=== PATIENT | male | born 1975 | race Caucasian/White ===

== ENCOUNTER → 2018-09-13 | Outpatient (CLI) | payer OTHER, SELFPAY ==
--- NOTE | 2018-09-13 16:49 | RAD_ITS ---
STUDY: X-RAY - LUMBAR SPINE REASON FOR EXAM: Male, 42 years old. Low back pain TECHNIQUE: 5 view(s) of the lumbar spine were obtained. COMPARISON: None FINDINGS: Normal lumbar lordosis. There is a mild dextroscoliosis. There is a normal alignment of the vertebrae in the lateral view. Normal vertebral bodies and endplates. Normal disc space heights. The soft tissue structures are unremarkable. RAD/L/S Spine Min 4 Views IMPRESSION: Normal x-ray examination of the lumbar spine. Electronically Signed: Carlitos Rehman MD at 17:58 EDT , Service support ,
== END | disposition home or self-care (01) ==
LOC: MTRAD 16:47
PROVIDERS: Family Provider Family Medicine; PCP Family Medicine; Referring Provider Family Medicine; Visit Provider Family Medicine
DX: M51.37 Other intervertebral disc degeneration, lumbosacral region (principal)
CPT/HCPCS: 72110

== ENCOUNTER 2018-09-15 12:25 | Emergency (ER) | payer OTHER, SELFPAY ==
[2018-09-15 12:25] VITALS: BP 138/83; PULSE 70; RESP 18; TEMP 36.7; O2SAT 95; BMI 29.1
--- NOTE | 2018-09-15 13:31 | ED.VIS.GEN ---
History of Present Illness Chief Complaint: Abscess Informant: Patient Onset: Today Timing: Continuous Current Severity: Moderate Maximum Severity: Moderate Narrative: Patient presents with a right posterior thigh abscess for 2 days. No fever chills cough or congestion. 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 He denies any systemic symptoms. Pain is mild to moderate achy Prior similar symptoms: No Past Medical History - Allergies and Home Meds Allergies/Adverse Reactions: Allergies No Known Allergies Allergy (Verified 09/15/18 12:28) Primary Care Physician: Stephen Jarvis MD [Primary Care Provider] - Past Medical History: None Smoking Status: Never smoker Review of Systems General: Denies: Fever Musculoskeletal: Reports: - - As in HPI Skin: Reports: Abscess Neurological: Denies: Weakness, Parasthesia Hematologic: Denies: Easy bruising, Easy bleeding Physical Exam Vital Signs/Narrative: Vital Signs Temp Pulse Resp BP Pulse Ox 09/15/18 12:25 98.1 F 70 18 138/83 H 95 Inital Vital Signs reviewed: Yes 1 - 2 cm abscess with 6 cm surrounding cellulitis General: Well nourished, Well developed Head: Normocephalic Cardiovascular: Regular rate Abdomen: Soft, Nontender Rectal: Deferred Back: Negative for: Spinal tenderness Extremities: - - As in the drawing Skin: - - Cellulitis and abscess as above Neurological: Normal Strength, Normal Sensation, Normal Gait Diagnostic/Tx/Re-eval - Medical Decision Making I&D was performed, patient will be discharged with analgesics and antibiotics. Procedures Procedure(s): Incision and drainage. Verbal permission. 2 cm right thigh abscess, Sarah, 1% lidocaine, 5 mL's. #11 blade was used I ellipsed the wound I probed. Moderate amount of pus was expectorated. Wound was left open. Patient tolerated procedure well ED Disposition - Plan for ED Patient: Disposition: Home or Assisted Living Diagnosis: Abscess Instructions: ABSCESS, Incision and Drainage Prescriptions: Sulfamethoxazole/Trimethoprim [Bactrim Ds Tablet] 1 ea PO BID #20 tab Prescription Printed Cephalexin [Keflex] 500 mg PO 4X/DAY #40 cap Prescription Printed Naproxen [Naprosyn] 500 mg PO BID PRN #20 tab Prescription Printed Referrals: Stephen Jarvis MD [Primary Care Provider] - 3-5 Days
[2018-09-15] MEDS: Cephalexin 250 MG Capsule 500 MG PO (13:47)
[2018-09-15] MEDS: Naproxen 500 MG Tablet PO (13:47)
[2018-09-15] MEDS: Smz/Tmp Ds Tablet 1 TABLET PO (13:47)
[2018-09-15 14:01] VITALS: RESP 19
== END 2018-09-15 14:02 | disposition home or self-care (01) ==
PROVIDERS: Emergency Provider Emergency Medicine; Family Provider Family Medicine; PCP Family Medicine
DX: L02.415 Cutaneous abscess of right lower limb (principal); L03.115 Cellulitis of right lower limb
CPT/HCPCS: 10060; 99283

== ENCOUNTER 2018-10-28 01:38 | Emergency (ER) | payer OTHER, SELFPAY ==
[2018-10-28 01:39] VITALS: BP 157/80; PULSE 70; RESP 16; TEMP 36.7; O2SAT 98; BMI 66.1
--- NOTE | 2018-10-28 02:05 | ED.DCSUM_ITS ---
- ER Visit Summary Date of Service: 10/28/18 Chief Complaint: Abscess History of Present Illness: The patient is a 42 M who presents with an abscess to his right posterior thigh and gluteal area. Patient states this has been getting worse over the past 5 days. Patient states it is gradually gotten worse. Patient states the pain is worse with applying any pressure or sitting. Patient states he tried to squeeze this at home and noted some mild bleeding. Patient denies any fevers or chills. Patient denies any nausea or vomiting. Patient states he had a similar episode a few months ago and had an incision and drainage at that time. Patient states he was placed on antibiotics. Physical Examination: Vital signs are stable. Patient is afebrile. Patient is in no acute distress. Oral mucosa is pink and moist. Neck is supple. Trachea is midline. Skin is warm and dry. There is erythema and induration over the right proximal thigh and gluteal area. There is no fluctuance. There is no discharge or drainage. Emergency Department Course and Treatment: The area was cleaned and anesthetized 1% plain lidocaine locally. A cruciate incision was made with a #11 blade scalpel. There is minimal purulent drainage expressed. Loculations were broken up with hemostats. The wound was left open. Patient was given a dose of clindamycin here. Patient was given a prescription for clindamycin. Patient was instructed to follow-up with his primary care physician in 5 to 7 days for wound recheck. Patient understood and was agreeable with the plan. All questions were answered. Disposition: Discharge home Impression: Abscess right thigh This note was generated with [email or web address] dictation software. It may contain incorrect words, spelling, and punctuation that were not noted in review of the chart prior to signing ED Disposition - Plan for ED Patient: Disposition: Home or Assisted Living Diagnosis: Abscess of right thigh Instructions: ABSCESS, Incision and Drainage Prescriptions: Clindamycin HCl [Cleocin] 300 mg PO Q6H #40 cap Prescription Printed Referrals: Stephen Jarvis MD [Primary Care Provider] - 5-7 Days
[2018-10-28] MEDS: Clindamycin HCl 150 MG Capsule 300 MG PO (02:16)
[2018-10-28 02:43] VITALS: RESP 16
== END 2018-10-28 02:44 | disposition home or self-care (01) ==
LOC: ED 02:11
PROVIDERS: Emergency Provider Emergency Medicine; Family Provider Family Medicine; PCP Family Medicine
DX: L02.415 Cutaneous abscess of right lower limb (principal)
CPT/HCPCS: 10060; 99283

== ENCOUNTER → 2021-02-18 | Outpatient (CLI) | payer OTHER, SELFPAY | END | disposition home or self-care (01) | PROVIDERS: PCP Family Medicine; Visit Provider Physician Assistant | DX: Z11.52 Encounter for screening for COVID-19 (principal) | CPT/HCPCS: 87635; U0005; U0003 ==

== ENCOUNTER → 2022-03-08 | Outpatient (CLI) | payer OTHER, SELFPAY ==
[2022-03-08 12:47] LABS: ALB/GLOB Ratio 1.1 RATIO (0.9-2.4); AST(SGOT) 29 U/L (15-37); Alanine Aminotransfer ALT/SGPT 76 U/L (16-61); Albumin, Serum 3.8 g/dL (3.2-5.0); Alkaline Phosphatase 67 U/L (45-117); Anion Gap 8 (5-15); BUN 17 mg/dL (7-18); BUN/Creat Ratio 18.8 RATIO (10-20); Calcium,Total 8.9 mg/dL (8.5-10.1); Chloride 107 mmol/L (98-107); Cholesterol 287 mg/dL (200); EST Glomerular Filtration Rate 96 mL/min (>60); Est Glom Filt Rate - Afr Amer 116 mL/min (>60); Globulin 3.5 g/dL (2.2-4.2); Glucose 102 mg/dL (74-106); High Density Lipoprotein 51 mg/dL; Potassium 4.2 mmol/L (3.5-5.1); Protein, Total 7.3 g/dL (6.4-8.2); Sodium Level 139 mmol/L (136-145); Triglycerides 208 mg/dL; Very Low Density Lipoprotein 42 mg/dL (5-40)
== END | disposition home or self-care (01) ==
LOC: MTLAB 09:40
PROVIDERS: PCP Family Medicine; Referring Provider Nurse Practitioner Family; Visit Provider Nurse Practitioner Family
DX: Z13.220 Encounter for screening for lipoid disorders (principal); Z13.1 Encounter for screening for diabetes mellitus
CPT/HCPCS: 36415; 80053; 80061

== ENCOUNTER → 2022-07-30 | Outpatient (CLI) | payer OTHER, SELFPAY ==
--- NOTE | 2022-07-30 10:34 | US_ITS ---
EXAM: US ABDOMEN COMPLETE CLINICAL INDICATION: pain TECHNIQUE: Real-time ultrasound of the abdomen with image documentation. COMPARISON: No relevant prior studies available. FINDINGS: LIVER: Increased echogenicity of the liver is nonspecific but most commonly associated with hepatic steatosis. No hepatic masses. The liver measures 17.1 cm. GALLBLADDER: Unremarkable. No shadowing gallstone. No gallbladder wall thickening is demonstrated. No pericholecystic fluid. Negative sonographic Licea''s sign. COMMON BILE DUCT: Unremarkable as visualized. The proximal common bile duct is within normal limits for the patient''s age. PANCREAS: Unremarkable as visualized. No focal abnormality is demonstrated in the pancreas. No pancreatic ductal dilatation. KIDNEYS: Unremarkable. There is no hydronephrosis. No shadowing calculus. No focal lesion or perinephric collection is demonstrated. SPLEEN: Unremarkable. The spleen is normal in size and homogeneous in echotexture. AORTA: Unremarkable. Submitted longitudinal images of the intra-abdominal aorta demonstrate no gross abnormalities and are unremarkable. INFERIOR VENA CAVA: Unremarkable. The IVC is patent. FREE FLUID: There is no free fluid. US/Abdomen Complete IMPRESSION: Increased echogenicity of the liver is nonspecific but most commonly associated with hepatic steatosis. Borderline hepatomegaly. Electronically Signed: Kike Huang (Brooks), at 21:59 EDT ,
[2022-07-30 11:59] LABS: Hematocrit 44.9 % (40-54); Hemoglobin 14.6 g/dL (13.0-16.5); Mean Corp Hgb Conc 32.5 g/dL (32-36); Mean Corpuscular Hgb 28.5 pg (27.0-32.0); Mean Corpuscular Volume 87.5 fL (80-94); Mean Platelet Vol. 8.7 fl (6.2-12.0); Platelet Count 298 K/mm3 (150-450); RBC Distribution Width CV 13.2 % (11.6-14.6); RBC Distribution Width SD 42.8 fl (35.1-43.9); Red Blood Count 5.13 M/mm3 (4.6-6.2); White Blood Count 6.1 K/mm3 (4.4-11.0)
[2022-07-30 12:12] LABS: Hemoglobin A1c 5.5 % (3.8-5.6)
[2022-07-30 12:27] LABS: ALB/GLOB Ratio 0.9 RATIO (0.9-2.4); AST(SGOT) 19 U/L (15-37); Alanine Aminotransfer ALT/SGPT 38 U/L (16-61); Albumin, Serum 3.6 g/dL (3.2-5.0); Alkaline Phosphatase 68 U/L (45-117); Anion Gap 5 (5-15); BUN 14 mg/dL (7-18); Chloride 107 mmol/L (98-107); Cholesterol 216 mg/dL (200); Creatinine, Serum 0.87 mg/dL (0.70-1.30); EST Glomerular Filtration Rate 99 mL/min (>60); Est Glom Filt Rate - Afr Amer 120 mL/min (>60); Globulin 3.8 g/dL (2.2-4.2); Glucose 86 mg/dL (74-106); High Density Lipoprotein 50 mg/dL; Lipase 39 U/L (13-75); Potassium 4.2 mmol/L (3.5-5.1); Protein, Total 7.4 g/dL (6.4-8.2); Sodium Level 141 mmol/L (136-145); Triglycerides 93 mg/dL; Very Low Density Lipoprotein 19 mg/dL (5-40)
== END | disposition home or self-care (01) ==
LOC: US 10:28
PROVIDERS: PCP Family Medicine; Referring Provider Family Medicine; Visit Provider Family Medicine
DX: R10.84 Generalized abdominal pain (principal); R53.81 Other malaise; E78.1 Pure hyperglyceridemia; R73.01 Impaired fasting glucose
CPT/HCPCS: 36415; 76700; 80053; 80061; 83036; 83690; 84443; 85027

== ENCOUNTER 2022-09-16 21:38 | Inpatient (IN) | payer OTHER, SELFPAY ==
[2022-09-16 21:39] VITALS: BP 140/90; PULSE 90; RESP 18; TEMP 36.7; O2SAT 98; BMI 31.4
[2022-09-16 22:08] LABS: Absolute Lymphocyte Count 2.62 X10^3/uL (0.83-4.51); Absolute Neutrophil Count 5.4 X10^3/uL (2.0-7.7); Basophil# 0.04 X10^3/uL; Basophil% 0.4 % (0-1); Eosinophil# 0.14 X10^3/uL; Eosinophils% 1.5 % (0-5); Hematocrit 44.4 % (40-54); Lymphocyte # 2.62 X10^3/ul (0.83-4.51); Lymphocyte % 28.6 % (19-41); Mean Corp Hgb Conc 33.8 g/dL (32-36); Mean Corpuscular Volume 85.9 fL (80-94); Mean Platelet Vol. 8.7 fl (6.2-12.0); Monocyte# 0.96 X10^3/uL; Monocyte% 10.5 % (0-10); NRBC Flagged by Analyzer 0 % (0-5); Neutrophil # 5.37 X10^3/uL (2.7-7.7); Neutrophil % 58.7 % (47-70); Platelet Count 289 K/mm3 (150-450); RBC Distribution Width CV 13.2 % (11.6-14.6); RBC Distribution Width SD 41.1 fl (35.1-43.9); Red Blood Count 5.17 M/mm3 (4.6-6.2); White Blood Count 9.2 K/mm3 (4.4-11.0)
[2022-09-16 22:20] LABS: Anion Gap 10 (5-15); BUN 17 mg/dL (7-18); BUN/Creat Ratio 18.3 RATIO (10-20); Chloride 105 mmol/L (98-107); Creatinine, Serum 0.93 mg/dL (0.70-1.30); EST Glomerular Filtration Rate 92 mL/min (>60); Est Glom Filt Rate - Afr Amer 112 mL/min (>60); Estimated Creatinine Clearance 104.58 ml/min; Glucose 108 mg/dL (74-106); Potassium 3.8 mmol/L (3.5-5.1); Sodium Level 139 mmol/L (136-145)
[2022-09-16 22:31] VITALS: BP 140/90; PULSE 90; RESP 18; TEMP 36.6; O2SAT 98
--- NOTE | 2022-09-16 22:38 | ED.RN ---
hiked sat & sun, felt sick monday, saw bite lomas . went to ed ([facility]) . I&D'd, cultured, started on doxy dr reyna consulted for appt mon now has streaks from wound to thigh.
--- NOTE | 2022-09-16 23:55 | HP.PCM.HOS_ITS ---
HPI - General General Date of Admission: 09/16/22 Date of Service: 09/16/22 Chief Complaint: Leg wound, redness, worsening. HPI Narrative The patient is a 46 y/o M w/ PMHx: HLD, CHARLES on CPAP, Obesity who presents to the [facility] ED on 09/16/22 with history of hiking over the weekend at [employer] [place] specifically on Monday and Monday both with onset on Monday general fatigue and malaise as well as a headache which was throbbing which he usually does not have any mild abdominal cramping and discomfort with then onset Monday noted 2 small lumps to the medial upper inner calf region which they initially thought were may be infected follicles but there is no erythema at that time with then transition of the 2 small follicles to 1 coalesced region which became black on Monday and further worsened on increasing in size but then onset of leg pain prompting ED evaluation at outside facility with I&D and some debridement of the necrotic tissue which was reportedly sent for culture but no discharge or purulent material was removed from the wound at that time per patient report with discharge on doxycycline however on day of presentation he had noted significant periwound erythema and streaking up his thigh prompting family to encourage him to present to the ED for evaluation. With the onset of the situation the outside facility had assisted in setting up a follow-up with general surgery Dr. Carroll for this upcoming Monday for this wound evaluation of note. Work-up in the ED included T98, heart rate 90, BP initially 140/90, respiratory rate 18, 98% on room air, CBC with WBC 9.2, hemoglobin 15, platelet 289 without marked shift, BMP unremarkable aside glucose 108, lactic acid 1.0. In the ED patient ministered IV vancomycin and IV Zosyn. [facility] Medical History (Updated 09/17/22 @ 01:[address] Karin Cassidy MD) Hyperlipidemia Obesity CHARLES on CPAP Home Medications NK 03/16/20 [History Last Taken Unknown] Allergy/AdvReac Type Severity Reaction Status Date / Time No Known Allergies Allergy Verified 09/16/22 21:42 Family History (Updated 09/17/22 @ 01:[address] Karin Cassidy MD) Mother Heart disease Hypertension Father No problems noted. other (Denies any marked paternal family history including heart disease, diabetes, cancer.) Surgical History (Updated 09/17/22 @ 01:[address] Karin Cassidy MD) History of hand surgery History of neck surgery History of tonsillectomy Social History (Updated 09/17/22 @ 01:[address] Karin Cassidy MD) household members: spouse and family Smoking Status: Never smoker alcohol intake: current alcohol intake frequency: a few times a month substance use type: does not use ROS ROS Narrative Admission Review of Systems: CONSTITUTIONAL: No weight loss, fever, chills, + weakness or fatigue. HEENT: + Transient headache. Eyes: No visual loss, blurred vision, double vision or yellow sclerae. Ears, Nose, Throat: No hearing loss, sneezing, congestion, runny nose or sore throat. SKIN: + Significant right lower extremity medial inner calf initial boils which coalesced and eventually necrosis with now surrounding erythema. CARDIOVASCULAR: No chest pain, chest pressure or chest discomfort, palpitations, edema, orthopnea, syncopal events. RESPIRATORY: No shortness of breath, cough or sputum, wheezing, hemoptysis. GASTROINTESTINAL: + anorexia, nausea, transient abdominal discomfort, no vomiting or diarrhea, melena, BRBPR. GENITOURINARY: No dysuria, frequency, urgency or retention. NEUROLOGICAL: + Transient headache. Dizziness, syncope, paralysis, ataxia, numbness or tingling in the extremities, focal weakness, change in bowel or bladder control, seizure. MUSCULOSKELETAL: +muscle, back pain, joint pain or stiffness. HEMATOLOGIC: No anemia, bleeding or bruising. LYMPHATICS: No enlarged nodes. No history of splenectomy. PSYCHIATRIC: No history of depression or anxiety. ENDOCRINOLOGIC: No reports of sweating, cold or heat intolerance. No polyuria or polydipsia. ALLERGIES: No history of asthma, hives, eczema or rhinitis. Vital Signs Vital Signs Vital Signs: 09/16/22 21:39 09/16/22 22:31 Temperature 98.0 F 98 F Temperature Source Temporal Oral Pulse Rate 90 90 Respiratory Rate 18 18 Blood Pressure 140/90 H 140/90 H Blood Pressure Mean 106 106 Pulse Ox 98 98 Oxygen Delivery Method Room Air Room Air Weight Weight: 225 lb 1.471 oz Body Mass Index (BMI) 31.4 Physical Exam Narrative Physical Examination: General: Awake, alert, oriented x 3 and cooperative, seated upright in the ED bed, fatigued appearing otherwise no acute distress, denied significant pain to the right lower extremity except significant discomfort with palpation the wound itself. Skin: Normal color, normal turgor, no icterus, no cyanosis except for notable right lower extremity medial inner upper calf with an approximate 3 cm x 1.5 to 2 cm slightly ulcerating wound, mildly indurated, no micky discharge or purulent material able to be expressed, notable periwound erythema extending up to the thigh and streaked. HEENT: AT/NC, EOMI, PERRLA, mildly dry MM, no carotid bruits or JVD noted. Lungs: CTA bilaterally, moderate effort, mild decrease BL bases, no rales, ronchi or wheezing. Heart: Currently regular rate and rhythm; no gallop, rub audible. Abdomen: Soft, obese, NTTP, ND, normal BS, no HSM. Extremities: No cyanosis, no clubbing, see skin with periwound and leg mild edema associated. Neurological: Patient awake, alert, oriented as noted, cognitive function intact; pupils equally reactive to light and accommodation, cranial nerves grossly normal, moving all 4 extremities, no focal deficits, strength mildly global decrease secondary to acute presentation. Psychiatric: Affect appears fatigued otherwise normal, no acute evidence of depressive or anxiety feelings. Results Lab / Micro Data 09/16/22 21:58 09/16/22 21:58 Labs: Laboratory Results - last 24 hr 09/16/22 21:58: WBC 9.2, RBC 5.17, Hgb 15.0, Hct 44.4, MCV 85.9, MCH 29.0, MCHC 33.8, RDW Std Deviation 41.1, RDW Coeff of Shiv 13.2, Plt Count 289, MPV 8.7, Immature Gran % (Auto) 0.300, Neut % (Auto) 58.7, Lymph % (Auto) 28.6, Gregg % (Auto) 10.5 H, Eos % (Auto) 1.5, Baso % (Auto) 0.4, Absolute Neuts (auto) 5.4, Absolute Lymphs (auto) 2.62, Nucleated RBC % 0, Sodium 139, Potassium 3.8, Chlo ride 105, Carbon Dioxide 24.0, Anion Gap 10, BUN 17, Creatinine 0.93, Estim Creat Clear Calc 104.58, Est GFR (MDRD) Af Amer 112, Est GFR (MDRD) Non-Af 92, BUN/Creatinine Ratio 18.3, Glucose 108 H, Calcium 9.0 Assessment & Plan Assessment/Plan (1) Cellulitis of leg, right: (2) Leg wound, right: PLAN: Plan The patient is a 46 y/o M w/ PMHx: HLD, CHARLES on CPAP, Obesity who presents to the [facility] ED on 09/16/22 with history of hiking over the weekend at [employer] [place] specifically on Monday and Monday with event onset of necrotic appearing wound to the right lower extremity with outside facility ED evaluation and I&D of necrotic tissue with discharge to home on antibiotic therapy now worsening with increased erythema and streaking up the leg prompting ED return. #1. RLE Necrotic Wound with margarito-wound/Extremity Cellulitis, streaking: Will admit to [facility], maintain on IV Vanc and Zosyn given worsened appearance, will obtain Wound Cx, will obtain Wound MRSA PCR, plan repeat CBC in AM, continue affected extremity elevation above heart when seated and in bed, monitor eryt patricia outline with VS checks, low threshold to obtain duplex US to assure no DVT concurrently, procalcitonin requested, also given necrotic appearance will request General surgery consultation now per family and patient request. #2. Elevated BP without hypertensive diagnosis: Possibly related with acute presentation, pain, will continue to monitor and add oral regimen if appropriate, as needed IV hydralazine in interim. #3. Hyperlipidemia: Noted FLP labs prior, significant, not on any chronic regimen, encourage continued outpatient follow-up and initiation of regimen if appropriate at that time. #4. Obesity: Weight loss and lifestyle changes encouraged. #5. CHARLES: CPAP nightly. #6. DVT prophylaxis: Lovenox. #7. CODE STATUS: Full code. Admission Evaluation Time spent evaluating chart, patient history, patient evaluation, care planning and discussion with specialists: 60 minutes. Charges/Coding Visit Charges Inpatient E&M: 12228 Init Hosp L2
--- NOTE | 2022-09-17 00:15 | EX.ED.DYSGE1 ---
HPI History of Present Illness Chief Complaint: Wound Informant: patient and spouse/S.O. Narrative Narrative: Patient is a 46-year-old male with no significant past medical history. He states he went hiking a few days ago and regular shorts and did not think anything of his trip as he denies any trauma or falling or any recollection of being bit by an insect. He states that the next day he noticed 2 small bites along the medial aspect of his right posterior knee. He states the next day the area was swollen and black with some surrounding redness and a concern for infection so he presented to the ER for evaluation. At that time the wound was opened and cultures were taken and he was started on doxycycline. He states that he has had right leg pain without injury and that he has been taking his antibiotic as directed. However this evening within a few hours he noticed that the redness had progressed both proximally up the thigh and distally down the calf and with this sudden change she presents for evaluation. [facility] Medical History (Updated 09/17/22 @ 00:[address] Andry Lora DO) Hyperlipidemia Obesity Home Medications NK 03/16/20 [History Last Taken Unknown] Allergy/AdvReac Type Severity Reaction Status Date / Time No Known Allergies Allergy Verified 09/16/22 21:42 Surgical History History of hand surgery History of tonsillectomy Social History (Updated 09/17/22 @ 00:[address] Karin Cassidy MD) household members: spouse and family Smoking Status: Never smoker alcohol intake: never substance use type: does not use ROS ROS ED Constitutional Constitutional ED: Denies chills or fever(s) ENT ENT ED: Denies sore throat Cardiovascular Cardiovascular: Denies chest pain Respiratory/Chest Respiratory/Chest: Denies cough or dyspnea Gastrointestinal Gastrointestinal: Denies abdominal pain, diarrhea, nausea or vomiting Genitourinary Genitourinary ED: Denies dysuria Musculoskeletal Musculoskeletal: Reports other Details: Positive right thigh pain Integumentary Reports other Details: Positive redness and ulceration to the right thigh/calf and knee Neurologic Neurologic: Denies headache(s) Hematologic/Lymphatic Hematologic/Lymphatic: Denies easy bleeding or easy bruising EXAM Physical Exam Const Vital Signs: 09/16/22 21:39 09/16/22 22:31 Temperature 98.0 F 98 F Temperature Source Temporal Oral Pulse Rate 90 90 Respiratory Rate 18 18 Blood Pressure 140/90 H 140/90 H Blood Pressure Mean 106 106 Pulse Ox 98 98 Oxygen Delivery Method Room Air Room Air Positive well nourished and well developed General Appearance ED: well developed HEENT HEENT Narrative: Normocephalic atraumatic Eyes PERRL and EOMs intact bilaterally Neck supple Resp normal respiratory effort and clear to auscultation bilaterally Cardio regular rate and regular rhythm Extremity Extremity Narrative: Right lower extremity is neurovascular intact. Patient has a 1 x 2 cm circular area of necrosis and ulceration to the medial posterior aspect of the right knee. There is no purulent discharge noted. Extending out from this proximally and distally by about 6 cm is areas of asymmetric erythema and faint warmth and lymphangitic streak. No palpable cord noted. No crepitance palpated. Patient has full active range of motion of the knee joint. Neuro oriented x3, CN's II-XII intact bilaterally and no sensory deficits noted Sensorium / Orientation: alert Psych mental status grossly normal Skin Skin Narrative: Soft tissue changes to the right leg as documented above MDM MDM MDM Narrative Medical decision making narrative: Patient presented to the ER afebrile. He has no history of immunosuppression. He reported he noticed areas look like 2 small bug bites that developed into ulceration and necrosis over the short 1 to 2 days. This history is concerning for brown recluse bite. However now that there is progression of redness within a few hours of lymphangitic streaking there is concern for secondary cellulitis with systemic involved. He is able to flex the knee going against a septic joint. He has no history of travel trauma or clotting disorder to put him at risk for DVT and therefore do not feel there is need for a venous duplex either. At this time based on the fast progression of the cellulitis I feel he would warrant IV antibiotics and therefore medicine was contacted and they do agree to accept the patient at this time. History & Record Review Discussion w/independent historian: Patient and Significant other Lab Data Attestation: I reviewed the patient's lab results. Labs: Laboratory Results - last 24 hr 09/16/22 09/16/22 21:58 23:35 WBC 9.2 RBC 5.17 Hgb 15.0 Hct 44.4 MCV 85.9 MCH 29.0 MCHC 33.8 RDW Std Deviation 41.1 RDW Coeff of Shiv 13.2 Plt Count 289 MPV 8.7 Immature Gran % (Auto) 0.300 Neut % (Auto) 58.7 Lymph % (Auto) 28.6 [place] % (Auto) 10.5 H Eos % (Auto) 1.5 Baso % (Auto) 0.4 Absolute Neuts (auto) 5.4 Absolute Lymphs (auto) 2.62 Nucleated RBC % 0 Sodium 139 Potassium 3.8 Chloride 105 Carbon Dioxide 24.0 Anion Gap 10 BUN 17 Creatinine 0.93 Estim Creat Clear Calc 104.58 Est GFR (MDRD) Af Amer 112 Est GFR (MDRD) Non-Af 92 BUN/Creatinine Ratio 18.3 Glucose 108 H Lactic Acid 1.0 Calcium 9.0 Management Discussion w/another healthcare provider: Hospitalist Discharge Plan Dx/Rx/DC Orders Clinical Impression: Cellulitis of leg, right, Leg wound, right Disposition Disposition: Acute Care [facility]
[2022-09-17 00:24] LABS: Procalcitonin < 0.01 ng/mL (0.00-0.09)
--- NOTE | 2022-09-17 01:21 | VDLE_ITS ---
Reason For Study: Rt Leg Pain RIGHT LEFT GSV is normal. CFV is compressible, spontaneous, phasic, CFV is compressible, spontaneous, phasic, competent, and demonstrates normal competent and demonstrates normal augmentation. augmentation. FV is compressible, spontaneous, phasic, competent and demonstrates normal augmentation. POP V is patent and compressible. T/P Trunk is compressible. PTV is compressible. RT PerV is compressible. Procedure This is a venous duplex using B-mode, color flow and spectral Doppler. Exam performed portable in patient room. The exam was diagnostic. A preliminary report was called and/or faxed to [facility]/3 detail supervisor. VL/Venous Duplex US, Unilateral Interpretation Summary There is no evidence of right lower extremity deep vein thrombosis. Right great saphenous vein appears patent and compressible segmentally. Normal flow patterns left common f emoral vein Ordering Physician: Karin Cassidy Referring Physician: Stephen Jarvis MD Performed By: Noel Stephen RVT
[2022-09-17 01:31] VITALS: BP 138/71; PULSE 88; RESP 18; TEMP 36.6; O2SAT 98
[2022-09-17 01:42] VITALS: BMI 31.4
[2022-09-17] MEDS: 0.9% Normal Saline 1,000 ML 125 ML IV (02:13)
[2022-09-17 02:14] VITALS: BP 137/89; PULSE 77; RESP 18; TEMP 36.6; O2SAT 97
[2022-09-17 03:25] LABS: Absolute Lymphocyte Count 2.61 X10^3/uL (0.83-4.51); Absolute Neutrophil Count 3.9 X10^3/uL (2.0-7.7); Basophil# 0.03 X10^3/uL; Basophil% 0.4 % (0-1); Eosinophil# 0.23 X10^3/uL; Hematocrit 41.3 % (40-54); Hemoglobin 13.7 g/dL (13.0-16.5); Lymphocyte # 2.61 X10^3/ul (0.83-4.51); Mean Corp Hgb Conc 33.2 g/dL (32-36); Mean Corpuscular Hgb 28.8 pg (27.0-32.0); Mean Corpuscular Volume 86.9 fL (80-94); Mean Platelet Vol. 8.6 fl (6.2-12.0); Monocyte# 0.89 X10^3/uL; Monocyte% 11.6 % (0-10); NRBC Flagged by Analyzer 0 % (0-5); Neutrophil % 50.7 % (47-70); Platelet Count 251 K/mm3 (150-450); RBC Distribution Width CV 13.2 % (11.6-14.6); RBC Distribution Width SD 41.7 fl (35.1-43.9); Red Blood Count 4.75 M/mm3 (4.6-6.2); White Blood Count 7.7 K/mm3 (4.4-11.0)
[2022-09-17 03:43] LABS: ALB/GLOB Ratio 0.9 RATIO (0.9-2.4); AST(SGOT) 18 U/L (15-37); Alanine Aminotransfer ALT/SGPT 35 U/L (16-61); Albumin, Serum 3.3 g/dL (3.2-5.0); Alkaline Phosphatase 70 U/L (45-117); Anion Gap 7 (5-15); BUN 16 mg/dL (7-18); BUN/Creat Ratio 19.3 RATIO (10-20); Calcium,Total 8.4 mg/dL (8.5-10.1); Chloride 108 mmol/L (98-107); Creatinine, Serum 0.83 mg/dL (0.70-1.30); EST Glomerular Filtration Rate 105 mL/min (>60); Est Glom Filt Rate - Afr Amer 127 mL/min (>60); Estimated Creatinine Clearance 117.18 ml/min; Globulin 3.7 g/dL (2.2-4.2); Glucose 113 mg/dL (74-106); Potassium 3.6 mmol/L (3.5-5.1); Sodium Level 138 mmol/L (136-145)
[2022-09-17 04:32] LABS: M R Staph aureus DNA By PCR Negative (Negative); Probe Check PASS; Specimen Processing Control PASS; Staph aureus DNA By PCR NEGATIVE (Negative)
--- NOTE | 2022-09-17 06:14 | PCM.RX.CS ---
Consult Antibiotic Management Pharmacy has been consulted to manage selected antiobiotic: Vancomycin Type of Intervention Type of Consult: New start Suspected Infection Suspected Infection: Skin/Soft tissue Labs Labs: Sodium 138 mmol/L (136-145) 09/17/22 03:00 Potassium 3.6 mmol/L (3.5-5.1) 09/17/22 03:00 Chloride 108 mmol/L (98-107) H 09/17/22 03:00 Carbon Dioxide 23.0 mmol/L (21.0-32.0) 09/17/22 03:00 Anion Gap 7 (5-15) 09/17/22 03:00 BUN 16 mg/dL (7-18) 09/17/22 03:00 Creatinine 0.83 mg/dL (0.70-1.30) 09/17/22 03:00 Est GFR (MDRD) Af Amer 127 mL/min (>60) 09/17/22 03:00 Est GFR (MDRD) Non-Af 105 mL/min (>60) 09/17/22 03:00 BUN/Creatinine Ratio 19.3 RATIO (10-20) 09/17/22 03:00 Glucose 113 mg/dL (74-106) H 09/17/22 03:00 Dosing Weight Weight used for dosin kg Estimated Creatinine Clearance Estimated Creatinine Clearance: >120 Pharmacy Plan for Drug Dosing Pharmacy Plan for Drug Dosing: Pharmacy Service will continue to monitor and adjust dosing as required. Follow-Up Labs Follow-Up Labs: Trough: Vancomycin Date/Time Labs Ordered Labs to be done on [date and time ordered]: 09/18 @ 0000
--- NOTE | 2022-09-17 07:51 | PCM.PN.HOSP ---
Reason for Visit Reason for Visit: Diagnoses Cellulitis of right lower limb (09/16/22) Unspecified open wound, right lower leg, initial encounter (09/16/22) Subjective Subjective Patient is a 46-year-old gentleman who presented to the emergency department with redness and swelling involving the medial aspect of the right posterior knee Objective Data Objective Data Vital Signs: Vital Signs Temp Pulse Resp BP Pulse Ox O2 Del Method 97.9 F 77 18 137/89 H 97 Room Air 09/17/22 02:14 09/17/22 02:14 09/17/22 02:14 09/17/22 02:14 09/17/22 02:09/17/22 02:14 Oxygen Delivery Method Room Air Weight: 102.058 kg Body Mass Index (BMI) 31.4 Intake & Output: Intake and Output for Last 24 Hours 09/15/22 09/16/22 09/17/22 23:59 23:59 23:59 Intake Total 1467.5 / 1467.5 Balance 1467.5 / 1467.5 Lab / Micro Data 09/17/22 03:00 09/17/22 03:00 Labs: Laboratory Results - last 24 hr 09/16/22 21:58: WBC 9.2, RBC 5.17, Hgb 15.0, Hct 44.4, MCV 85.9, MCH 29.0, MCHC 33.8, RDW Std Deviation 41.1, RDW Coeff of Shiv 13.2, Plt Count 289, MPV 8.7, Immature Gran % (Auto) 0.300, Neut % (Auto) 58.7, Lymph % (Auto) 28.6, [place] % (Auto) 10.5 H, Eos % (Auto) 1.5, Baso % (Auto) 0.4, Absolute Neuts (auto) 5.4, Absolute Lymphs (auto) 2.62, Nucleated RBC % 0, Sodium 139, Potassium 3.8, Chloride 105, Carbon Dioxide 24.0, Anion Gap 10, BUN 17, Creatinine 0.93, Estim Creat Clear Calc 104.58, Est GFR (MDRD) Af Amer 112, Est GFR (MDRD) Non-Af 92, BUN/Creatinine Ratio 18.3, Glucose 108 H, Calcium 9.0 09/16/22 23:35: Lactic Acid 1.0, Procalcitonin < 0.01 09/17/22 01:55: S.aureus Protein A PCR NEGATIVE, MRSA (PCR) Negative 09/17/22 03:00: WBC 7.7, RBC 4.75, Hgb 13.7, Hct 41.3, MCV 86.9, MCH 28.8, MCHC 33.2, RDW Std Deviation 41.7, RDW Coeff of Shiv 13.2, Plt Count 251, MPV 8.6, Immature Gran % (Auto) 0.300, Neut % (Auto) 50.7, Lymph % (Auto) 34.0, [place] % (Auto) 11.6 H, Eos % (Auto) 3.0, Baso % (Auto) 0.4, Absolute Neuts (auto) 3.9, Absolute Lymphs (auto) 2.61, Nucleated RBC % 0, Sodium 138, Potassium 3.6, Chloride 108 H, Carbon Dioxide 23.0, Anion Gap 7, BUN 16, Creatinine 0.83, Estim Creat Clear Calc 117.18, Est GFR (MDRD) Af Amer 127, Est GFR (MDRD) Non-Af 105, BUN/Creatinine Ratio 19.3, Glucose 113 H, Calcium 8.4 L, Total Bilirubin 0.40, AST 18, ALT 35, Alkaline Phosphatase 70, Total Protein 7.0, Albumin 3.3, Globulin 3.7, Albumin/Globulin Ratio 0.9 Physical Exam Narrative GENERAL: cooperative HEENT: Atraumatic; normocephalic EYES; Anicteric, Normal Conjunctiva NECK; supple, normal thyroid, RESPIRATORY: Diminished to auscultation CARDIOVASCULAR: Regular S1 S2, GI: soft, normoactive bowel sounds, : No Renal angle tenderness; EXTREMITIES: RLE medial aspect of the posterior knee with a wound with area of surrounding area of erythema MUSCULOSKELETAL: no muscle wasting NEURO: Awake; no lateralizing signs. SKIN: As described above PSYCH; Flat affect Assessment & Plan Assessment/Plan (1) Cellulitis of leg, right: (2) Leg wound, right: QUALIFIERS: Encounter type: initial encounter Qualified Code(s): S81.801A - Unspecified open wound, right lower leg, initial encounter PLAN: Plan Patient is a 46-year-old gentleman who presented to the emergency department with redness and swelling involving the medial aspect of the right posterior knee 1. Right lower extremity cellulitis ? Patient admitted to regular nursing floor started on broad-spectrum antibiotic therapy with vancomycin and Zosyn cultures sent 2. Elevated blood pressure ? Patient is not a known hypertensive we will continue with monitoring 3. Class I obesity with BMI of 31 ? Weight loss advised 4. Obstructive sleep apnea ? CPAP at night 5. DVT prophylaxis ? SC Lovenox Time spent in the patient's overall evaluation,decision-making process, review of diagnostic data, adjustment of management, discussion with other providers, nursing nursing and ancillary staff involved in patient's care documentation, 35 minutes Charges/Coding Visit Charges Inpatient E&M: 50055 Subs Hosp L2
[2022-09-17 08:09] VITALS: O2SAT 95
[2022-09-17 08:15] VITALS: BP 141/90; PULSE 60; RESP 16; TEMP 36.6; O2SAT 97
[2022-09-17] MEDS: Enoxaparin 40 MG/0.4 ML Syringe SC (08:37)
--- NOTE | 2022-09-17 08:44 | CON.PCM.SX_ITS ---
Assessment & Plan Assessment/Plan (1) Leg wound, right: PLAN: The patient has a wound on his medial right knee. It appears this has been debrided and has a clean base. There is no fluctuance. There is some swelling. It appears the cellulitis has receded since it was marked last night with the IV antibiotics. I would recommend continuing IV antibiotics for 24 more hours and I will reassess the wound tomorrow. If more necrosis appears I will take him for debridement but at this time I do not think there is anything further to debride. They did not get any pus out during the incision and drainage and I do not feel any fluctuance. Prabhakar Hernandez MD Pager: [facility] [address] [place] [address], [address] [place] [address] Office: HPI Consult Data Date of Consult: 09/17/22 HPI Narrative HPI Narrative: PERICO BROWN, is a 46 M who presents with cellulitis of his right medial knee. Patient reports he feels like he got bit by something about a week ago. He came into the emergency room on with a necrotic wound which was debrided in the emergency room. They did not get any purulent material from underneath the eschar. He reports he was feeling well but then last night he started having spreading of cellulitis and felt like his thigh was hurting so he came into the emergency room. He was started on IV antibiotics. [facility] Medical History (Updated 09/17/22 @ 01:51 by Maryann Chaves) Asthma CPAP (continuous positive airway pressure) dependence High cholesterol Hyperlipidemia Non-smoker Obesity CHARLES on CPAP Sleep apnea Home Medications NK 03/16/20 [History Last Taken Unknown] Allergy/AdvReac Type Severity Reaction Status Date / Time No Known Allergies Allergy Verified 09/16/22 21:42 Family History (Updated 09/17/22 @ 01:[address] Karin Cassidy MD) Mother Heart disease Hypertension Father No problems noted. Family History other Surgical History History of hand surgery History of neck surgery History of tonsillectomy Social History (Updated 09/17/22 @ 01:[address] Karin Cassidy MD) household members: spouse and family Smoking Status: Never smoker alcohol intake: current alcohol intake frequency: a few times a month substance use type: does not use ROS Constitutional Constitutional: Denies anorexia, chills or fever(s) Eyes Eyes: Denies blurry vision ENT HEENT: Denies abnormal hearing Cardiovascular Cardiovascular: Denies chest pain Respiratory/Chest Respiratory/Chest: Denies cough or dyspnea Gastrointestinal Gastrointestinal: Denies abdominal pain, nausea or vomiting Genitourinary Genitourinary: Denies change in urinary stream Musculoskeletal Musculoskeletal: Reports joint pain and joint swelling; Denies abnormal gait Integumentary Integumentary: Denies jaundice Neurologic Neurologic: Denies abnormal gait Psychiatric Psychiatric: Denies anxiety Physical Exam Const alert and oriented x3 HEENT normocephalic Eyes PERRL Resp normal respiratory effort Cardio Rate: regular rate Rhythm: regular rhythm GI normal to inspection, nondistended, normoactive bowel sounds Extremity Extremity Narrative: The patient has an area of cellulitis in the right medial knee. There is no fluctuance but there is some cellulitis. Lab / Micro Data 09/17/22 03:00 09/17/22 03:00 Labs: Laboratory Results - last 24 hr 09/16/22 21:58: WBC 9.2, RBC 5.17, Hgb 15.0, Hct 44.4, MCV 85.9, MCH 29.0, MCHC 33.8, RDW Std Deviation 41.1, RDW Coeff of Shiv 13.2, Plt Count 289, MPV 8.7, Immature Gran % (Auto) 0.300, Neut % (Auto) 58.7, Lymph % (Auto) 28.6, [place] % (Auto) 10.5 H, Eos % (Auto) 1.5, Baso % (Auto) 0.4, Absolute Neuts (auto) 5.4, Absolute Lymphs (auto) 2.62, Nucleated RBC % 0, Sodium 139, Potassium 3.8, Chloride 105, Carbon Dioxide 24.0, Anion Gap 10, BUN 17, Creatinine 0.93, Estim Creat Clear Calc 104.58, Est GFR (MDRD) Af Amer 112, Est GFR (MDRD) Non-Af 92, BUN/Creatinine Ratio 18.3, Glucose 108 H, Calcium 9.0 09/16/22 23:35: Lactic Acid 1.0, Procalcitonin < 0.01 09/17/22 01:55: S.aureus Protein A PCR NEGATIVE, MRSA (PCR) Negative 09/17/22 03:00: WBC 7.7, RBC 4.75, Hgb 13.7, Hct 41.3, MCV 86.9, MCH 28.8, MCHC 33.2, RDW Std Deviation 41.7, RDW Coeff of Shiv 13.2, Plt Count 251, MPV 8.6, Immature Gran % (Auto) 0.300, Neut % (Auto) 50.7, Lymph % (Auto) 34.0, [place] % (Auto) 11.6 H, Eos % (Auto) 3.0, Baso % (Auto) 0.4, Absolute Neuts (auto) 3.9, Absolute Lymphs (auto) 2.61, Nucleated RBC % 0, Sodium 138, Potassium 3.6, Chloride 108 H, Carbon Dioxide 23.0, Anion Gap 7, BUN 16, Creatinine 0.83, Estim Creat Clear Calc 117.18, Est GFR (MDRD) Af Amer 127, Est GFR (MDRD) Non-Af 105, BUN/Creatinine Ratio 19.3, Glucose 113 H, Calcium 8.4 L, Total Bilirubin 0.40, AST 18, ALT 35, Alkaline Phosphatase 70, Total Protein 7.0, Albumin 3.3, Globulin 3.7, Albumin/Globulin Ratio 0.9
--- NOTE | 2022-09-17 13:35 | CASEMGMT ---
RN EVELINE Face to Face with patient for initial transition planning/care coordination assessment. RN CM introduced self and role at [facility]. Patient lying in bed, alert and oriented. Patient willing to participate in assessment and is able to answer all questions appropriately. Care providers, pharmacy, and demographics verified. Patient wishes to discharge home, denies need for home health at this time. Patient states he has no further needs or concerns at this time. CM to follow for discharge planning needs that may arise. PCP: Matheus Specialists: Maryellen welt maker Preferred Pharmacy: [facility] retail Insurance: MMO Prescription Benefit: yes Living Will/HPOA: none LNOK: Living Arrangements: Patient live with in a 2 story home. Patient is independent and able to ambulate stairs. Transportation: self, DME/HHC: Patient states he has cpap at home. No previous HHC. Disposition Plan: Patient to discharge home with family support and follow-up plans in place. Cesilia ESPINOZA, RN, CM
[2022-09-17 14:00] VITALS: BP 118/79; PULSE 64; RESP 16; TEMP 36.6; O2SAT 95
[2022-09-17 20:41] VITALS: BP 146/90; PULSE 72; RESP 16; TEMP 36.5; O2SAT 100
[2022-09-18 01:56] VITALS: BP 129/88; PULSE 62; RESP 16; TEMP 36.6; O2SAT 98
[2022-09-18 02:17] LABS: Vancomycin, Trough Level 14.5 ug/mL (5.0-15.0)
--- NOTE | 2022-09-18 04:53 | PCM.RX.CS ---
Consult Antibiotic Management Pharmacy has been consulted to manage selected antiobiotic: Vancomycin Type of Intervention Type of Consult: Follow-up Labs Labs: Sodium 138 mmol/L (136-145) 09/17/22 03:00 Potassium 3.6 mmol/L (3.5-5.1) 09/17/22 03:00 Chloride 108 mmol/L (98-107) H 09/17/22 03:00 Carbon Dioxide 23.0 mmol/L (21.0-32.0) 09/17/22 03:00 Anion Gap 7 (5-15) 09/17/22 03:00 BUN 16 mg/dL (7-18) 09/17/22 03:00 Creatinine 0.83 mg/dL (0.70-1.30) 09/17/22 03:00 Est GFR (MDRD) Af Amer 127 mL/min (>60) 09/17/22 03:00 Est GFR (MDRD) Non-Af 105 mL/min (>60) 09/17/22 03:00 BUN/Creatinine Ratio 19.3 RATIO (10-20) 09/17/22 03:00 Glucose 113 mg/dL (74-106) H 09/17/22 03:00 Vancomycin Trough 14.5 ug/mL (5.0-15.0) 09/18/22 01:37 Goal Trough Goal Trough: 15-20 mcg/mL Pharmacy Plan for Drug Dosing Pharmacy Plan for Drug Dosing: Pharmacy Service will continue to monitor and adjust dosing as required. TROUGH 14.5 @ 8 HRS. NO CHANGES, FOLLOW UP TROUGH IN 2 DAYS Follow-Up Labs Follow-Up Labs: Trough: Vancomycin Date/Time Labs Ordered Labs to be done on [date and time ordered]: 09/20 @ 0130
[2022-09-18 05:32] VITALS: BMI 31.6
[2022-09-18 07:29] VITALS: BP 135/90; PULSE 57; RESP 16; TEMP 36.2; O2SAT 98
--- NOTE | 2022-09-18 07:32 | PN.HOSP_ITS ---
Reason for Visit Reason for Visit: Diagnoses Cellulitis of right lower limb (09/16/22) Unspecified open wound, right lower leg, initial encounter (09/16/22) Subjective Subjective Patient seen area of erythema improving. Awaiting cultures from [place] prior to decision being made regarding discharge antibiotics Objective Data Objective Data Vital Signs: Vital Signs Temp Pulse Resp BP Pulse Ox O2 Del Method 97.2 F L 57 L 16 135/90 H 98 Room Air 09/18/22 07:29 09/18/22 07:29 09/18/22 07:29 09/18/22 07:29 09/18/22 07:29 09/18/22 07:29 Oxygen Delivery Method Room Air Weight: 102.6 kg Body Mass Index (BMI) 31.6 Intake & Output: Intake and Output for Last 24 Hours 09/16/22 09/17/22 09/18/22 23:59 23:59 23:59 Intake Total 2767.5 / 2767.5 825 / 825 Balance 2767.5 / 2767.5 825 / 825 Lab / Micro Data 09/18/22 01:37 09/18/22 01:37 Labs: Laboratory Results - last 24 hr 09/18/22 01:37: Vancomycin Trough 14.5 Physical Exam Narrative GENERAL: cooperative HEENT: Atraumatic; normocephalic EYES; Anicteric, Normal Conjunctiva NECK; supple, normal thyroid, RESPIRATORY: Diminished to auscultation CARDIOVASCULAR: Regular S1 S2, GI: soft, normoactive bowel sounds, : No Renal angle tenderness; EXTREMITIES: RLE medial aspect of the posterior knee with a wound with area of surrounding area of erythema MUSCULOSKELETAL: no muscle wasting NEURO: Awake; no lateralizing signs. SKIN: As described above PSYCH; Flat affect Assessment & Plan Assessment/Plan (1) Cellulitis of leg, right: (2) Leg wound, right: QUALIFIERS: Encounter type: initial encounter Qualified Code(s): S81.801A - Unspecified open wound, right lower leg, initial encounter PLAN: Plan Patient is a 46-year-old gentleman who presented to the emergency department with redness and swelling involving the medial aspect of the right posterior knee 1. Right lower extremity cellulitis ? Patient admitted to regular nursing floor started on broad-spectrum antibiotic therapy with vancomycin and Zosyn cultures sent ? 09/18/2022; Awaiting cultures from [place] prior to decision being made regarding discharge antibiotics 2. Elevated blood pressure ? Patient is not a known hypertensive we will continue with monitoring 3. Class I obesity with BMI of 31 ? Weight loss advised 4. Obstructive sleep apnea ? CPAP at night 5. DVT prophylaxis ? SC Lovenox Time spent in the patient's overall evaluation,decision-making process, review of diagnostic data, adjustment of management, discussion with other providers, nursing nursing and ancillary staff involved in patient's care documentation, 35 minutes Charges/Coding Visit Charges Inpatient E&M: 21394 Subs Hosp L2
[2022-09-18 07:35] VITALS: O2SAT 96
[2022-09-18 07:53] LABS: Absolute Lymphocyte Count 2.46 X10^3/uL (0.83-4.51); Basophil# 0.06 X10^3/uL; Basophil% 0.9 % (0-1); Eosinophil# 0.27 X10^3/uL; Eosinophils% 4.1 % (0-5); Hematocrit 43.5 % (40-54); Hemoglobin 14.4 g/dL (13.0-16.5); Lymphocyte # 2.46 X10^3/ul (0.83-4.51); Mean Corp Hgb Conc 33.1 g/dL (32-36); Mean Corpuscular Hgb 28.9 pg (27.0-32.0); Mean Corpuscular Volume 87.3 fL (80-94); Mean Platelet Vol. 9.1 fl (6.2-12.0); Monocyte# 0.79 X10^3/uL; Monocyte% 11.9 % (0-10); NRBC Flagged by Analyzer 0 % (0-5); Neutrophil # 3.04 X10^3/uL (2.7-7.7); Neutrophil % 45.8 % (47-70); Platelet Count 298 K/mm3 (150-450); RBC Distribution Width CV 13.2 % (11.6-14.6); RBC Distribution Width SD 42.1 fl (35.1-43.9); Red Blood Count 4.98 M/mm3 (4.6-6.2); White Blood Count 6.6 K/mm3 (4.4-11.0)
[2022-09-18 08:04] LABS: Anion Gap 5 (5-15); BUN 15 mg/dL (7-18); BUN/Creat Ratio 15.5 RATIO (10-20); Calcium,Total 8.8 mg/dL (8.5-10.1); Chloride 108 mmol/L (98-107); Creatinine, Serum 0.97 mg/dL (0.70-1.30); EST Glomerular Filtration Rate 88 mL/min (>60); Est Glom Filt Rate - Afr Amer 106 mL/min (>60); Estimated Creatinine Clearance 100.27 ml/min; Glucose 117 mg/dL (74-106); Phosphorus 4.4 mg/dL (2.5-4.9); Sodium Level 139 mmol/L (136-145)
--- NOTE | 2022-09-18 09:00 | PCM.PN.SRG ---
Subjective Subjective Patient reports no pain in his knee Objective Data Objective Data Vital Signs: Vital Signs Temp Pulse Resp BP Pulse Ox O2 Del Method 97.2 F L 57 L 16 135/90 H 96 Room Air 09/18/22 07:29 09/18/22 07:29 09/18/22 07:29 09/18/22 07:29 09/18/22 07:35 09/18/22 07:39 Oxygen Delivery Method Room Air Weight: 226 lb 3.108 oz Body Mass Index (BMI) 31.6 Intake & Output: Intake and Output for Last 24 Hours 09/16/22 09/17/22 09/18/22 23:59 23:59 23:59 Intake Total 2767.5 / 2767.5 825 / 825 Balance 2767.5 / 2767.5 825 / 825 Lab / Micro Data 09/18/22 01:37 09/18/22 01:37 Labs: Laboratory Results - last 24 hr 09/18/22 01:37: WBC 6.6, RBC 4.98, Hgb 14.4, Hct 43.5, MCV 87.3, MCH 28.9, MCHC 33.1, RDW Std Deviation 42.1, RDW Coeff of Shiv 13.2, Plt Count 298, MPV 9.1, Immature Gran % (Auto) 0.300, Neut % (Auto) 45.8 L, Lymph % (Auto) 37.0, [place] % (Auto) 11.9 H, Eos % (Auto) 4.1, Baso % (Auto) 0.9, Absolute Neuts (auto) 3.0, Absolute Lymphs (auto) 2.46, Nucleated RBC % 0, Sodium 139, Potassium 4.0, Chloride 108 H, Carbon Dioxide 26.0, Anion Gap 5, BUN 15, Creatinine 0.97, Estim Creat Clear Calc 100.27, Est GFR (MDRD) Af Amer 106, Est GFR (MDRD) Non-Af 88, BUN/Creatinine Ratio 15.5, Glucose 117 H, Calcium 8.8, Phosphorus 4.4, Magnesium 2.0, Vancomycin Trough 14.5 Physical Exam Const oriented x3 Resp normal respiratory effort Cardio regular rate and regular rhythm Assessment & Plan Assessment/Plan (1) Cellulitis of leg, right: PLAN: The patient has some minimal erythema anterior to the wound. The rest of the cellulitis has resolved. The wound itself appears clean based still. There is no necrosis that I can tell. There is no purulence that I can express and I do not feel any fluctuance. Continue IV antibiotics per hospitalist. After he is discharged home he can follow-up with me. Prabhakar Hernandez MD Pager: [facility] [address] [place] [address], [address] [place] [address] Office:
[2022-09-18] MEDS: Enoxaparin 40 MG/0.4 ML Syringe SC (10:01)
[2022-09-18 13:35] VITALS: BP 129/81; PULSE 73; RESP 16; TEMP 36.5; O2SAT 97
[2022-09-18 21:01] VITALS: BP 144/94; PULSE 64; RESP 16; TEMP 36.1; O2SAT 100
[2022-09-19 02:09] VITALS: BP 137/88; PULSE 60; RESP 16; TEMP 36.1; O2SAT 97
[2022-09-19 05:14] VITALS: BMI 31.7
[2022-09-19 07:11] VITALS: O2SAT 95
--- NOTE | 2022-09-19 07:40 | PCM.PN.SRG ---
Subjective Subjective Patient reports he is doing well with no pain Objective Data Objective Data Vital Signs: Vital Signs Temp Pulse Resp BP Pulse Ox O2 Del Method 97 F L 60 16 137/88 H 95 Room Air 09/19/22 02:09 09/19/22 02:09 09/19/22 02:09 09/19/22 02:09 09/19/22 07:11 09/19/22 07:11 Oxygen Delivery Method Room Air Weight: 227 lb Body Mass Index (BMI) 31.7 Intake & Output: Intake and Output for Last 24 Hours 09/17/22 09/18/22 09/19/22 23:59 23:59 23:59 Intake Total 2767.5 / 2767.5 1475 / 1475 325 / 325 Balance 2767.5 / 2767.5 1475 / 1475 325 / 325 Lab / Micro Data 09/18/22 01:37 09/18/22 01:37 Labs: Laboratory Results - last 24 hr 09/18/22 01:37: WBC 6.6, RBC 4.98, Hgb 14.4, Hct 43.5, MCV 87.3, MCH 28.9, MCHC 33.1, RDW Std Deviation 42.1, RDW Coeff of Shiv 13.2, Plt Count 298, MPV 9.1, Immature Gran % (Auto) 0.300, Neut % (Auto) 45.8 L, Lymph % (Auto) 37.0, [place] % (Auto) 11.9 H, Eos % (Auto) 4.1, Baso % (Auto) 0.9, Absolute Neuts (auto) 3.0, Absolute Lymphs (auto) 2.46, Nucleated RBC % 0, Sodium 139, Potassium 4.0, Chloride 108 H, Carbon Dioxide 26.0, Anion Gap 5, BUN 15, Creatinine 0.97, Estim Creat Clear Calc 100.27, Est GFR (MDRD) Af Amer 106, Est GFR (MDRD) Non-Af 88, BUN/Creatinine Ratio 15.5, Glucose 117 H, Calcium 8.8, Phosphorus 4.4, Magnesium 2.0 Radiography Diagnostic Testing: Radiology Impression Venous Doppler Study 09/17/22 01:21 Interpretation Summary There is no evidence of right lower extremity deep vein thrombosis. Right great saphenous vein appears patent and compressible segmentally. Normal flow patterns left common femoral vein Ordering Physician: Karin Cassidy Referring Physician: Stephen Jarvis MD Performed By: Noel Stephen RVT Physical Exam Const oriented x3 Cardio regular rate and regular rhythm GI normal to inspection, nondistended, normoactive bowel sounds Extremity Extremity Narrative: The wound is clean base with no erythema around it and no fluctuance Assessment & Plan Assessment/Plan (1) Leg wound, right: QUALIFIERS: Encounter type: initial encounter Qualified Code(s): S81.801A - Unspecified open wound, right lower leg, initial encounter PLAN: The patient's right leg appears improved. The cellulitis has resolved. There is nothing further to breed. He may be discharged when ready by the hospitalist and he may follow-up with me as needed. Prabhakar Hernandez MD Pager: [facility] [address] [place] [address], [address] [place] [address] Office:
[2022-09-19 08:36] VITALS: BP 131/80; PULSE 61; RESP 18; TEMP 36.6; O2SAT 99
--- NOTE | 2022-09-19 08:42 | WOUNDNOTE ---
wound photo: right posterior knee
[2022-09-19] MEDS: Enoxaparin 40 MG/0.4 ML Syringe SC (08:47)
--- NOTE | 2022-09-19 13:17 | DS.PCM_ITS ---
Providers Date of Admission: 09/16/22 Date of Discharge: 09/19/22 Primary Care Physician: Dr. 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 Comment: Reason for Consult:: RLE wound Reason For Visit: CELLULITIS/LEG WOUNDS, FAILED OUTPATIENT ABX Diagnosis Discharge Diagnosis (1) Leg wound, right: Status: Acute Code(s): S81.801A - Unspecified open wound, right lower leg, initial encounter Qualifiers: Encounter type: initial encounter Qualified Code(s): S81.801A - Unspecified open wound, right lower leg, initial encounter Medications at Discharge Home Medications cephalexin 500 mg capsule 500 mg PO Q6H #20 caps 09/19/22 sulfamethoxazole 800 mg-trimethoprim 160 mg tablet (Bactrim DS) 1 tab PO BID #10 tabs 09/19/22 Hospital Course Summary of Care Provided Minutes Spent on Discharge: 29 Hospital Course: Mr. Beavers is a 46-year-old white male who presented to the emergency department [facility] on 09/16/2022 with a right posterior leg wound with surrounding erythema and pain. The patient had been hiking the weekend prior to admission and on Monday began having general fatigue and malaise as well as a headache and he noted 2 small lumps near the medial aspect of his right calf region which initially he thought may be infected follicles however there is no erythema at that time. They became black on Monday of last week and worsened on at which time he was seen in outside emergency department where an I&D was performed and cultures were sent. He was started on doxycycline at that time. His pain improved however erythema surrounding the wound got larger and he had streaking up into his thigh which prompted family to encourage him to be seen in the emergency department. Vital signs on presentation were unremarkable. He had no leukocytosis or left shift. Lactic acid was 1.0. He was given IV vancomycin and Zosyn in the emergency department and admitted to the medical floor where he was maintained on IV antibiotics for his hospital course. Anus duplex was performed and was negative for DVT. General surgery evaluated the patient and felt that it was adequately debrided and no further I&D was required. Clinically he significantly has improved during his hospital course and cultures from outside facility are showing staph epi. We elected to continue antibiotics for another 5 days with Keflex 500 mg p.o. 4 times daily and Bactrim DS 1 tablet p.o. twice daily for another 5 days to complete antibiotic treatment. I have asked him to follow-up with his primary care physician for reevaluation in the next week. Discharge diagnoses: Right leg cellulitis Obesity CHARLES Physical Exam Const alert, oriented x3, no apparent distress, no limitations, healthy appearing and well nourished Constitutional Narrative: , Middle-aged, white male, walking around the room, appears comfortable nontoxic, very pleasant General Appearance: cooperative, comfortable, well kempt and well developed Orientation / Consciousness: awake, oriented to person, oriented to place and oriented to time Exam Limitations: no limitations Nutritional Appearance: overweight HEENT normocephalic, head/scalp atraumatic, hearing grossly normal bilaterally and moist oral mucous membranes Resp normal respiratory effort, no retractions, no use of accessory muscles and clear to auscultation bilaterally Auscultation: Negative for rales, rhonchi or wheezes Cardio regular rate, regular rhythm, S1 normal heart sound, S2 normal heart sound, no murmurs, no rub, no gallops and no clicks GI normal to inspection, nondistended, normoactive bowel sounds, soft to palpation and non-tender Extremity no clubbing, cyanosis or edema Skin no rashes or lesions noted, No no wounds, skin turgor normal and no jaundice Wound Narrative: Right lower extremity with marked retraction of erythema from previous outline area and small wound centrally that appears to be healing Neuro oriented x3, CN's II-XII intact bilaterally, moves all extremities and no focal motor deficits Speech: speech normal Psych affect normal Psych Narrative: Very pleasant Weight / BMI Weight Weight: 102.965 kg Body Mass Index (BMI) 31.7 ABG / Lab / Microbiology Data 09/18/22 01:37 09/18/22 01:37 Microbiology: Microbiology 09/17/22 03:00 Blood Culture (Wb) - Anticubital Left Blood Culture - Preliminary No growth in 48 hours. 09/16/22 23:35 Blood Culture (Wb) - Anticubital Right Blood Culture - Preliminary No growth in 48 hours. Radiography Diagnostic Testing: Radiology Impression Venous Doppler Study 09/17/22 01:21 Interpretation Summary There is no evidence of right lower extremity deep vein thrombosis. Right great saphenous vein appears patent and compressible segmentally. Normal flow patterns left common femoral vein Ordering Physician: Karin Cassidy Referring Physician: Stephen Jarvis MD Performed By: Noel Stephen RVT D/C Instructions Discharge Diet: No restrictions Discharge Activity: Return to Normal Activity Meaningful Use Info Meaningful Use Diagnoses (Choose all that apply): None applicable Discharge Plan Admission Admit Date/Time: 09/16/22 23:56 Primary Reason for Your Visit: Right lower extremity cellulitis Attending Provider: Noemi Bills Primary Care Provider: Stephen Jarvis Consulting Providers: Prabhakar Hernandez; Karin Cassidy; Gui Thomas Instructions Additional Instructions / Restrictions: 1. Keep wound clean with soap and water and wash daily 2. Keep area covered with a Band-Aid or other sterile dressing Discharge Orders/Prescriptions Prescriptions: New cephalexin 500 mg capsule 500 mg PO Q6H Qty: 20 0RF sulfamethoxazole-trimethoprim [Bactrim DS] 800-160 mg tablet 1 tab PO BID Qty: 10 0RF Referrals / Follow Up: Stephen Jarvis MD [Primary Care Provider] - Within 1 Week (for wound check and hospital follow-up) Disposition Disposition (needs filled in before D/C Order can be placed): Home, Self Care Charges/Coding Visit Charges Inpatient E&M: 21329 Disch Hosp
[2022-09-19 13:33] VITALS: BP 129/98; PULSE 67; RESP 18; TEMP 36.6; O2SAT 100
--- NOTE | 2022-09-19 14:05 | PHA.DC_ITS ---
Pharmacy [place] Med Reconciliation Pharmacy Service has performed discharge medication reconciliation for this patient. Counseling attempted by pharmacy technician per diem Aldo, but patient was already D/C'ed. Medications reviewed. The patient's discharge medication list was reviewed for discrepancies and discrepancies were resolved. Medications at Discharge Home Medications cephalexin 500 mg capsule 500 mg PO Q6H #20 caps 09/19/22 sulfamethoxazole 800 mg-trimethoprim 160 mg tablet (Bactrim DS) 1 tab PO BID #10 tabs 09/19/22
== END 2022-09-19 13:47 | disposition home or self-care (01) | DRG 603 ==
LOC: ED 09-17 00:16 → MS3 09-17 00:21
PROVIDERS: Internal Medicine; Admitting Provider Family Medicine; Emergency Provider Emergency Medicine; PCP Family Medicine; Referring Provider Family Medicine; Visit Provider Internal Medicine
DX: L03.115 Cellulitis of right lower limb (principal); S81.801A Unspecified open wound, right lower leg, initial encounter; G47.33 Obstructive sleep apnea (adult) (pediatric); E78.5 Hyperlipidemia, unspecified; E66.9 Obesity, unspecified; Z68.31 Body mass index [BMI] 31.0-31.9, adult; Z79.2 Long term (current) use of antibiotics; R03.0 Elevated blood-pressure reading, without diagnosis of hypertension
CPT/HCPCS: 36415; 80048; 80053; 80202; 83605; 83735; 84100; 84145; 85025; 87040; 87640; 93971; 94668; 99252; 99283; J7030; J7040; J7050; A4216; G0463